=== PATIENT | female | born 1995 | race Caucasian/White ===

== ENCOUNTER 2025-07-25 08:33 | Outpatient (REF) | payer OTHER, SELFPAY ==
[2025-07-25 13:22] LABS: MANUAL DIFF FLAG NO
[2025-07-25 13:26] LABS: Appearance Urine Clear; Glucose Urine UA Negative (Negative); PH 5.0 (5.0-9.0); Specific Gravity - Urine 1.025 (1.005-1.025)
[2025-07-25 13:40] LABS: Hematocrit 41.5 % (37.0-47.0); Hemoglobin 13.6 g/dl (12.0-16.0); Imm Gran Abs Auto 0.00 X10*3/uL (0.00-0.03); Imm Gran Pct Auto 0.0 % (0.0-0.4); Lymphocytes Absolute Auto 3.1 X10*3/uL (1.2-4.9); Mean Corpuscular HGB Conc 32.8 g/dl (31.0-35.0); Mean Corpuscular Hemoglobin 32.4 pg (27.0-33.0); Mean Corpuscular Volume 98.8 fL (80.0-98.0); NRBC Abs Auto 0.000 X10*3/uL (0.0-0.012); NRBC Pct Auto 0.0 /100WBC (0.0-0.2); Platelet Count 332 X10*3/uL (160-400); Red Blood Count 4.20 X10*6/uL (4.20-5.50); White Blood Count 7.7 X10*3/uL (4.8-10.8)
[2025-07-25 14:31] LABS: Alanine Aminotransferase 21 U/L (0-31); Albumin Level 5.1 g/dL (3.5-5.0); Alkaline Phosphatase 74 U/L (39-117); Anion Gap 14 (12-20); Aspartate Amino Transferase 31 U/L (5-31); Blood Urea Nitrogen 18 mg/dL (9-16); Calcium 9.8 mg/dL (8.4-10.2); Carbon Dioxide 26 mmol/L (22-29); Chloride 105 mmol/L (96-108); Cholesterol 200 mg/dL (<200); Estimated Glomerular Filt Rate > 60; HDL Cholesterol 74 mg/dL (>40); Magnesium 2.1 mg/dL (1.6-2.6); Potassium 4.5 mmol/L (3.3-5.1); Sodium 140 mmol/L (135-145); Total Protein 7.7 g/dL (6.5-8.0); Triglycerides 105 mg/dL (<150)
[2025-07-25 14:56] LABS: Folate 10.2 ng/mL (> or = 4.0); Vitamin B12 396 pg/mL (200-900)
[2025-07-25 15:29] LABS: Free T4 (Free Thyroxine) 0.64 ng/dL (0.71-1.85)
[2025-07-25 15:34] LABS: CT PCR Urine NOT DETECTED (Not Detect.); NG PCR Urine NOT DETECTED (Not Detect.)
[2025-07-26 05:02] LABS: HBS Num1 0.25 mIU/mL (0-7.99); HBsAGNum1 0.39 S/CO (0.00-0.99); HIV Num 1 0.06 S/CO (0.00-0.99); Hepatitis B Surface Antigen Negative (Negative); ~HepC Num1 0.14 S/CO (0.00-0.79); ~Hepatitis B Surface Antibody NONREACTIVE (Nonreactive); ~Hepatitis C Antibody Nonreactive (Nonreactive)
[2025-07-26 05:58] LABS: Syphilis Screen Nonreactive (Nonreactive)
[2025-07-29 17:58] LABS: VITAMIN D (1,25 OH) D3 40 pg/mL; Vit D (1,25-Dihydroxy) Total 40 pg/mL (18-72); Vitamin D (1,25 OH) D2 <8 pg/mL
== END 2025-07-25 08:34 | disposition home or self-care (01) ==
LOC: HO.HKASLDS 08:33
PROVIDERS: PCP Student in an Organized Health Care Education/Training Program; Visit Provider Student in an Organized Health Care Education/Training Program
DX: Z76.89 Persons encountering health services in other specified circumstances (principal); F41.9 Anxiety disorder, unspecified; F43.10 Post-traumatic stress disorder, unspecified; J30.2 Other seasonal allergic rhinitis; M62.89 Other specified disorders of muscle; F10.91 Alcohol use, unspecified, in remission; N81.89 Other female genital prolapse; R15.9 Full incontinence of feces; Z13.31 Encounter for screening for depression; Z13.39 Encounter for screening examination for other mental health and behavioral disorders; Z13.9 Encounter for screening, unspecified
CPT/HCPCS: 80053; 80061; 81003; 82607; 82652; 82746; 83036; 83735; 84425; 84439; 84443; 85025; 86706; 86780; 86803; 87340; 87389; 87491; 87591; 96127; 99202

== ENCOUNTER 2025-07-25 08:33 | Outpatient (AMB) | payer OTHER, SELFPAY ==
--- OUTSIDE RECORDS SUMMARY | 2024-07-25 03:45 | XMS_ITS ---
Author Organization [facility] Billing Info Address [address] [place] [address] Care Team Providers Care Carpet Cleaner Name Role Phone ELIJAH JEROME Unavailable [phone] [place] Unavailable Unavailable Allergies No Known Allergies REASON FOR VISIT HX of Mild Polyhydramnios, Echogenic Bowel, Elevated BP at 15 weeks, Growth US/BPP, MFM visit Medications Medication SIG (Take, Route, Frequency, Duration) Notes Start Date End Date Status Magnesium Active Doxylamine-Pyridoxine 10-10 MG as directed Orally take daily q.h.s. may increase to b.i.d. if tolerate to the sleepiness side effects for 30 days 02/06/2024 Active Melatonin 3 MG 1 tablet at bedtime as needed Orally Once a day 30mg Active DHA 200 MG 1 capsule with a sandra l Orally Once a day for 30 days 01/18/2024 Active Liver Beef Liver Active Ferrous Sulfate Acti ve Social History Tobacco Use: Social History Observation Description Date Details (start date - stop date) Former Smoker NA - NA Tobacco Status: Question Answer Notes Patient is a former smoker Problems Problem Type SNOMED Code ICD Code Onset Dates Problem Status W/U Status Risk Notes Problem [id number] History of polyhydramnios (Z87.59) Active confirmed Vital Signs Height 66 in 07/25/2024 Weight 200.4 lbs 07/25/2024 BMI 32.34 kg/m2 07/25/2024 Blood pressure systolic 124 mm Hg 07/25/20 24 Blood pressure diastolic 76 mm Hg 024 Heart Rate 85 /min 07/25/2024 Oximetry 98 07/25/2024 Encounters Encounter Location Date Provider Diagnosis [id number] [facility] [address] [place] [address] 07/25/2024 ELIJAH JEROME Echogenic bowel of f etus on ultrasound O28.3 ; Elevated BP without diagnosis of hypertension R03.0 ; History of polyhydramnios Z87.59 and 32 weeks gestation of Z3A.32 Assessments Encounter Date Diagnosis (ICD Code) Assessment Notes Treatment Notes Treatment Clinical Notes Section Notes 07/25/2024 Echogenic bowel of fetus on ultrasound (ICD-10 - O28.3) 07/25/2024 Elevated BP without diagnosis of hypertension (ICD-10 - R03.0) 07/25/2024 History of polyhydramnios (ICD-10 - Z87.59) 07/25/2024 32 weeks gestation of (ICD-10 - Z3A.32) Weeks 32 to 34 of Your : Care Instructions material was published 07/25/2024 Other Please see Viewpoint [facility] documentation under eCW patient documents for further details regarding todays visit. Plan Of Treatment Treatment Notes Assessment Notes 32 weeks gestation of Weeks 32 to 34 of Your : Care Instructions material was published Next Appt Details Follow Up: Please see follow up recommendations in [facility] Viewpoint note., Reason: Progress Notes * Yanelis VERADOB: 7 (29 yo F)Acc No.[id number]:07/25/2024 PROGRESS NOTE Patient: Yanelis GERMAN External Provider: Jose JEROME DO :1995 A ge:29 Y S ex:Female Date:07/25/2024 C #:[id number] Address:[address] [place], [place] Subjective: * Chief Complaints: * H X of Mild Polyhydramnios, Echogenic Bowel, Elevated BP at 15 weeksGrowth US/BPPMFM visit * HPI: D epression Screening: PHQ-2 (2015 Edition) L ittle interest or pleasure in doing things??Not at all F eeling down, depressed, or hopeless? N ot at all T otal Score 0 F irst Point of Contact Screening: Do any of the following apply to you? N ew rash or open sores N o F ever and/or chills in the past 7 days N o C ough N o M uscle or body aches (other than from an injury) N o S ore throat N o I n the past 3 weeks, have you or a close contact traveled outside the [place] and you are now ill? N o O FFICE USE (If universal masking is not in place, provide patients age 2 years and older with a facemask to wear over their mouth and nose while in the practice.): P atient answered no to all questions OR only answered yes to question 1 N o further action needed 1 09/25/2023 * Medical History: * Importer Exporter History: L ast pap d ate 0 10/17/2023 wnl B irth control n one. S exually active c urrently sexually active. H istory of STDs C hlamydia. L ast menstrual period d ate 0 09/22/2023 M enarche a ge 1 2 P eriods e very 21-25 days for 3-5 days duration of bleeding with pain before and during menses.. * OB History: P ast Pregnancies T otal Preg. 2, Full Term 0, Premature 0, AB. Induced 0, AB. Spontaneous 1, Ectopics 0, Multiple Births 0, Living 0. T otal pregnancies 1 . P regnancy # 1: 2 014, Miscarriage, [place]. P regnancy # 2: C urrent. * Surgical History: t onsillectomy 2004 * Hospitalization/Major Diagno stic Procedure: D enies Past Hospitalization * Family History: F ather: stroke (CVA). G randmother: Cardiovascular Disease, Bleeding Disorder, blood clot. G randfather: Cardiovascular Disease. * Social History: A lcohol Use Patient u ses alcohol once per week outside of T obacco Status Patient is a former smoker Quit in: 018 I llicit Drug Use Patient/Family reports: P rior illicit drug use Marijuana, Aleja, Acid, Cocaine, Mushroom - 3 years Do you use marijuana? N o Do you use prescription drugs that are not prescribed for you??No * Medications: T akingDoxylamine-Pyridoxine 10-10 MG Tablet Delayed Release as directed Orally take daily q.h.s. may increase to b.i.d. if tolerate to the sleepiness side effects Ferrous Sulfate Liver , Notes to Pharmacist: Beef LiverMagnesium Melatonin 3 MG Tablet 1 tablet at bedtime as needed Orally Once a day , Notes to Pharmacist: 30mgPreNatal DHA 200 MG Capsule 1 capsule with a meal Orally Once a day Medication List reviewed and reconciled with the patientTaking Doxylamine-Pyridoxine 10-10 MG Tablet Delayed Release as directed Orally take daily q.h.s. may increase to b.i.d. if tolerate to the sleepiness side effects Taking Ferrous Sulfate Taking Liver , Notes to Pharmacist: Beef LiverTaking Magnesium Taking Melatonin 3 MG Tablet 1 tablet at bedtime as needed Orally Once a day , Notes to Pharmacist: 30mgTaking DHA 200 MG Capsule 1 capsule with a meal Orally Once a day Medication List reviewed and reconciled with the patient * Allergies: N .K.A.no[Allergies Verified] Objective: * Vitals: H t: 66 in, Ht-cm: 167.64 cm, Wt: 200.4 lbs, Wt-k.9 kg, BMI:32.34, Weight Change: 3.4 lbs, Body Surface Area: 2.06, BP:124/76, HR:85, Oxygen sat %:98, Pain scale: 0. Assessment: * Assessment: 1. E chogenic bowel of fetus on ultrasound - O28.3 (Primary) 2 . E levated BP without diagnosis of hypertension - R03.0 3 . H istory of polyhydramnios - Z87.59 4 . 3 2 weeks gestation of - Z3A.32 Plan: * Treatment: 2. O thers Clinical Notes: Please see Viewpoint [facility] documentation under eCW patient documents for further details regarding todays visit. * Procedure Codes: 7 6816 [id number] * Preventive Medicine: [place] PAF (Patient Assessment Form): F all Risk Assessment Date Screening Completed: 08/23/2022 Increased Fall Risk factors: N o fall risk factors History Falls in Past Year: N o falls in the past year * Follow Up: Noemí mitchell see follow up recommendations in [facility] Viewpoint note. * Care Plan Details* * Sign off status: Completed true * Provider: Jose JEROME DO Date: 09/25/2023 Generated for Meir Jenkins/Savage on: 09/25/2024 09:20 AM EST History and Physical Notes * HPI (History of Present Illness) Category Sub-Category Detail Notes Category Not es Depression Screening PHQ-2 (2015 Edition) Little interest or pleasure in doing things?: Not at all Feeling down, depressed, or hopeless?: N ot at all Total Score: 0 First Point of Contact Screening Do any of the following apply to you? New rash or open sores: No Fever and/or chills in the past 7 days: No Cough: No Muscle or body aches (other than from an injury): No Sore throat: No In the past 3 weeks, have yo u or a close contact traveled outside the [place] and you are now ill? : No OFFICE USE (If [email or web address] is not in place, provide patients age 2 years and older with a facemask to wear over their mouth and nose while in the practice.):: Patient answered no to all questions OR only answered yes to question 1 No further action needed : 07/25/2024
--- OUTSIDE RECORDS SUMMARY | 2024-08-01 02:30 | XMS_ITS ---
Author Organization [facility] Billing Info Address [address] [facility] [place] [address] Care Team Providers Care Industrial Court Magistrate Name Role Phone ELIJAH JEROME Unavailable [phone] [place], [facility]if[facility] Unavailable Unavailable Allergies No Known Allergies REASON FOR VISIT BP check, BPP Medications Medication SIG (Take, Route, Frequency, Duration) Notes Start Date End Date Status Magnesium Active Aspirin Adult Low Dose 81 MG 1 tablet Orally Once a day Active Liver Beef Liver Active DHA 200 MG 1 capsule with a sandra l Orally Once a day for 30 days 01/18/2024 Active Melatonin 3 MG 1 tablet at bedtime as needed Orally Once a day 30mg Active Ferrous Sulfate Acti ve Doxylamine-Pyridoxine 10-10 MG as directed Orally take daily q.h.s. may increase to b.i.d. if tolerate to the sleepiness side effects for 30 days 02/06/2024 Active Social History Tobacco Use: Social History Observation Description Date Details (start date - stop date) Former Smoker NA - NA Tobacco Status: Question Answer Notes Patient is a former smoker Vital Signs Height 66 in 08/01/2024 Weight 201 lbs 08/01/2024 BMI 32.44 kg/m2 08/01/2024 Blood pressure systolic 132 mm Hg 08/01/20 24 Blood pressure diastolic 66 mm Hg 024 Heart Rate 88 /min 08/01/2024 Oximetry 98 08/01/2024 Encounters Encounter Location Date Provider Diagnosis [id number] [facility] [address] [place] [address] 08/01/2024 ELIJAH JEROME Echogenic bowel of f etus on ultrasound O28.3 ; Elevated BP without diagnosis of hypertension R03.0 ; History of polyhydramnios Z87.59 and 33 weeks gestation of Z3A.33 Assessments Encounter Date Diagnosis (ICD Code) Assessment Notes Treatment Notes Treatment Clinical Notes Section Notes 08/01/2024 Echogenic bowel of fetus on ultrasound (ICD-10 - O28.3) 08/01/2024 Elevated BP without diagnosis of hypertension (ICD-10 - R03.0) 08/01/2024 History of polyhydramnios (ICD-10 - Z87.59) 08/01/2024 33 weeks gestation of (ICD-10 - Z3A.33) Weeks 32 to 34 of Your : Care Instructions material was published 08/01/2024 Other Please see Viewpoint [facility] documentation under eCW patient documents for further details regarding todays visit. Plan Of Treatment Treatment Notes Assessment Notes 33 weeks gestation of Weeks 32 to 34 of Your : Care Instructions material was published Next Appt Details Follow Up: Please see follow up recommendations in M Viewpoint note., Reason: Progress Notes * Yanelis VERADOB: 7 (29 yo F)Acc No.[id number]:08/01/2024 PROGRESS NOTE Patient: Yanelis GERMAN External Provider: Jose JEROME DO :1995 A ge:29 Y S ex:Female Date:08/01/2024 C #:[id number] Address:[address] [place] [address] [place] Subjective: * Chief Complaints: * B P checkBPP * HPI: D epression Screening: PHQ-2 (2015 [...] 1 N o further action needed 1 10/02/2023 * Medical History: * Surgical History: t onsillectomy 2004 * Hospitalization/Major Diagno stic Procedure: D enies Past Hospitalization * Family History: F ather: stroke (CVA). G randmother: Cardiovascular Disease, Bleeding Disorder, blood clot. G randfather: Cardiovascular Disease. * Social History: A lcohol Use Patient u ses alcohol once per week outside of T obacco Status Patient is a former smoker Quit in: I llicit Drug Use Patient/Family reports: P rior illicit drug use Marijuana, Aleja, Acid, Cocaine, Mushroom - 3 years Do you use marijuana? N o Do you use prescription drugs that are not prescribed for you??No * Medications: T akingAspirin Adult Low Dose 81 MG Tablet Delayed Release 1 tablet Orally Once a day Doxylamine-Pyridoxine 10-10 MG Tablet Delayed Release as [...] List reviewed and reconciled with the patientTaking Aspirin Adult Low Dose 81 MG Tablet Delayed Release 1 tablet Orally Once a day Taking Doxylamine-Pyridoxine 10-10 MG Tablet Delayed Release as [...] t: 66 in, Ht-cm: 167.64 cm, Wt: 201 lbs, Wt-k.17 kg, BMI:32.44, Weight Change: 0.6 lbs, Body Surface Area: 2.06, BP:132/66, HR:88, Oxygen sat %:98, Pain scale: 0. Assessment: * Assessment: 1. E chogenic bowel of fetus on ultrasound - O28.3 (Primary) 2 . E levated BP without diagnosis of hypertension - R03.0 3 . H istory of polyhydramnios - Z87.59 4 . 3 3 weeks gestation of - Z3A.33 Plan: * Treatment: 2. O thers Clinical Notes: Please see Viewpoint [facility] documentation under eCW patient documents for further details regarding todays visit. * Procedure Codes: 7 6819 [id number] * Preventive Medicine: [place] PAF (Patient Assessment Form): F all Risk Assessment Date Screening Completed: 10/02/2023 Increased Fall Risk factors: N o fall risk factors History Falls in Past Year: N o falls in the past year * Follow Up: Noemí mitchell see follow up recommendations in M Viewpoint note. * Care Plan Details* * Sign off status: Completed true * Provider: Jose JEROME DO Date: 10/02/2023 Generated for Meir desouza/Khanh/Savage on: 09/25/2024 09:16 AM EST History and Physical Notes * [...] now ill? : No OFFICE USE (If universal mas irish is not in place, provide patients age 2 years and older with a facemask to wear over their mouth and nose while in the practice.):: Patient answered no to all questions OR only answered yes to question 1 No further action needed : 08/01/2024
--- OUTSIDE RECORDS SUMMARY | 2024-08-01 02:30 | XMS_ITS ---
Author Organization [facility] Billing Info Address [address] [place] [address] Care Team Providers Care Supervisor Drying And Softening Name Role Phone JUSTUS ELIJAH Unavailable [phone] [facility] Unavailable Unavailable REASON FOR VISIT BPP, nurse Encounters Encounter Location Date Provider Diagnosis [id number] [facility] [address] [place] [address] 08/01/2024 ELIJAH JEROME Echogenic bowel of f etus on ultrasound O28.3 ; Elevated BP without diagnosis of hypertension R03.0 and History of polyhydramnios Z87.59 Assessments Encounter Date Diagnosis (ICD Code) Assessment Notes Treatment Notes Treatment Clinical Notes Section Notes 08/01/2024 Echogenic bowel of fetus on ultrasound (ICD-10 - O28.3) 08/01/2024 Elevated BP without diagnosis of hypertension (ICD-10 - R03.0) 08/01/2024 History of polyhydramnios (ICD-10 - Z87.59) Plan Of Treatment No Information Progress Notes * Yanelis VERADOB: 7 (29 yo F)Acc No.[id number]:08/01/2024 PROGRESS NOTE Patient: Yanelis GERMAN External Provider: Jose JEROME DO :1995 A ge:29 Y S ex:Female Date:08/01/2024 Donna ACHARYA#:[id number] [facility] [address] [facility] Subjective: * Chief Complaints: * B PP, nurse * Medical History: * Surgical History: * Hospitalization/Major Diagno stic Procedure: * Medications: Objective: * Vitals: Assessment: * Assessment: 1. E chogenic bowel of fetus on ultrasound - O28.3 (Primary) 2 . E levated BP without diagnosis of hypertension - R03.0 3 . H istory of polyhydramnios - Z87.59 Plan: * Treatment: 2. E levated BP without diagnosis of hypertension I maging: US- BIOPHYSICAL PROFILE, W/O NON-STRESS(ScImage-PREFBO) (58652) IH 3. H istory of polyhydramnios I maging: US- BIOPHYSICAL PROFILE, W/O NON-STRESS(ScImage-PREFBO) (56061) IH * Procedure Codes: * * Sign off status: Completed true * Provider: Jose JEROME DO Date: 10/02/2023 Generated for Meir desouza/Khanh/Savage on: 09/25/2024 09:20 AM EST
--- OUTSIDE RECORDS SUMMARY | 2024-08-08 03:00 | XMS_ITS ---
Author Organization [facility] Billing Info Address [address] [place] [address] Care Team Providers Care Wind Plant Manager Name Role Phone JUSTUS ELIJAH Unavailable [phone] [facility] Unavailable Unavailable REASON FOR VISIT BPP, nurse Encounters Encounter Location Date Provider Diagnosis [id number] [facility] [address] [place] [address] 08/08/2024 ELIJAH JEROME Echogenic bowel of f etus on ultrasound O28.3 ; Elevated BP without diagnosis of hypertension R03.0 and History of polyhydramnios Z87.59 Assessments Encounter Date Diagnosis (ICD Code) Assessment Notes Treatment Notes Treatment Clinical Notes Section Notes 08/08/2024 Echogenic bowel of fetus on ultrasound (ICD-10 - O28.3) 08/08/2024 Elevated BP without diagnosis of hypertension (ICD-10 - R03.0) 08/08/2024 History of polyhydramnios (ICD-10 - Z87.59) Plan Of Treatment No Information Progress Notes * Yanelis VERADOB: 7 (29 yo F)Acc No.[id number]:08/08/2024 PROGRESS NOTE Patient: Yanelis GERMAN External Provider: Jose JEROME DO :1995 A ge:29 Y S ex:Female Date:08/08/2024 Donna ACHARYA#:[id number] Address[facility] Subjective: * Chief Complaints: * B PP, [...] I maging: US- BIOPHYSICAL PROFILE, W/O NON-STRESS(ScImage-PREFBO) (71282) IH 3. H istory of polyhydramnios I maging: US- BIOPHYSICAL PROFILE, W/O NON-STRESS(ScImage-PREFBO) (35993) IH * Procedure Codes: * * Sign off status: Completed true * Provider: Jose JEROME DO Date: 10/09/2023 Generated for Meir desouza/Khanh/Savage on: 09/25/2024 09:20 AM EST
--- OUTSIDE RECORDS SUMMARY | 2024-08-08 03:00 | XMS_ITS ---
Author Organization [facility] Billing Info Address [address] [facility] [place] [address] Care Team Providers Care Heel Pricker Name Role Phone ELIJAH JEROME Unavailable [phone] [place] Unavailable Unavailable Allergies No Known Allergies REASON FOR VISIT BP check, BPP Medications Medication SIG (Take, Route, Frequency, Duration) Notes Start Date End Date Status Liver Beef Liver Active Doxylamine-Pyridoxine 10-10 MG as directed Orally take daily q.h.s. may increase to b.i.d. if tolerate to the sleepiness side effects for 30 days 02/06/2024 Active Ferrous Sulfate Acti ve Magnesium Active Melatonin 3 MG 1 tablet at bedtime as needed Orally Once a day 30mg Active DHA 200 MG 1 capsule with a sandra l Orally Once a day for 30 days 01/18/2024 Active Aspirin Adult Low Dose 81 MG 1 tablet Orally Once a day Active Social History Tobacco Use: Social History Observation Description Date Details (start date - stop date) Former Smoker NA - NA Tobacco Status: Question Answer Notes Patient is a former smoker Vital Signs Height 66 in 08/08/2024 Weight 204 lbs 08/08/2024 BMI 32.92 kg/m2 08/08/2024 Blood pressure systolic 118 mm Hg 08/08/20 24 Blood pressure diastolic 74 mm Hg 024 Heart Rate 94 /min 08/08/2024 Oximetry 98 08/08/2024 Encounters Encounter Location Date Provider Diagnosis [id number] [facility] [address] [place] [address] 08/08/2024 ELIJAH JEROME Echogenic bowel of f etus on ultrasound O28.3 ; Elevated BP without diagnosis of hypertension R03.0 ; History of polyhydramnios Z87.59 and 34 weeks gestation of Z3A.34 Assessments Encounter Date Diagnosis (ICD Code) Assessment Notes Treatment Notes Treatment Clinical Notes Section Notes 08/08/2024 Echogenic bowel of fetus on ultrasound (ICD-10 - O28.3) 08/08/2024 Elevated BP without diagnosis of hypertension (ICD-10 - R03.0) 08/08/2024 History of polyhydramnios (ICD-10 - Z87.59) 08/08/2024 34 weeks gestation of (ICD-10 - Z3A.34) Weeks 34 to 36 of Your : Care Instructions material was published 08/08/2024 Other Please see Viewpoint [facility] documentation under eCW patient documents for further details regarding todays visit. Plan Of Treatment Treatment Notes Assessment Notes 34 weeks gestation of Weeks 34 to 36 of Your : Care Instructions material was published Next Appt Details Follow Up: Please see follow up recommendations in M Viewpoint note., Reason: Progress Notes * Yanelis VERADOB: 7 (29 yo F)Acc No.[id number]:08/08/2024 PROGRESS NOTE Patient: Yanelis GERMAN External Provider: Jose JEROME DO :1995 A ge:29 Y S ex:Female Date:08/08/2024 C #:[id number] Address:[address] [place] [address] [place], [place] Subjective: * Chief Complaints: * B [...] 1 N o further action needed 1 10/09/2023 * Medical History: * Surgical History: t [...] t: 66 in, Ht-cm: 167.64 cm, Wt: 204 lbs, Wt-k.53 kg, BMI:32.92, Weight Change: 3 lbs, Body Surface Area: 2.07, BP:118/74, HR:94, Oxygen sat %:98, Pain scale: 0. Assessment: * Assessment: 1. E chogenic bowel of fetus on ultrasound - O28.3 (Primary) 2 . E levated BP without diagnosis of hypertension - R03.0 3 . H istory of polyhydramnios - Z87.59 4 . 3 4 weeks gestation of - Z3A.34 Plan: * Treatment: 2. O thers Clinical Notes: Please see Viewpoint [facility] documentation under eCW patient documents for further details regarding todays visit. * Procedure Codes: 7 6819 74098 * Preventive Medicine: [place] PAF (Patient Assessment Form): F all Risk Assessment Date Screening Completed: 08/23/2022 Increased Fall Risk factors: N o fall risk factors History Falls in Past Year: N o falls in the past year * Follow Up: P paula see follow up recommendations in [facility] Viewpoint note. * Care Plan Details* * Sign off status: Completed true * Provider: Jose JEROME DO Date: 10/09/2023 Generated for Meir desouza/Khanh/Savage on: 09/25/2024 09:20 AM EST History and [...] or a close contact traveled outside the [place] and you are now ill? : No OFFICE USE (If universal mas irish is not in place, provide patients age 2 years and older with a facemask to wear over their mouth and nose while in the practice.):: Patient answered no to all questions OR only answered yes to question 1 No further action needed : 08/08/2024
--- OUTSIDE RECORDS SUMMARY | 2024-08-14 03:30 | XMS_ITS ---
Author Organization [facility] Billing Info Address [address] [facility] [place] [address] Care Team Providers Care Community Educator Name Role Phone ELIJAH JEROME Unavailable [phone] [facility] Unavailable Unavailable Allergies No Known Allergies REASON FOR VISIT BP check, BPP Medications Medication SIG (Take, Route, Frequency, Duration) Notes Start Date End Date Status Magnesium Active Liver Beef Liver Active DHA 200 [...] side effects for 30 days 02/06/2024 Active Aspirin Adult Low Dose 81 MG 1 tablet Orally Once a day Active Social History Tobacco Use: Social History Observation Description Date Details (start date - stop date) Former Smoker NA - NA Tobacco Status: Question Answer Notes Patient is a former smoker Vital Signs Height 66 in 08/14/2024 Weight 205 lbs 08/14/2024 BMI 33.08 kg/m2 08/14/2024 Blood pressure systolic 108 mm Hg 08/14/20 24 Blood pressure diastolic 66 mm Hg 024 Heart Rate 88 /min 08/14/2024 Oximetry 99 08/14/2024 Encounters Encounter Location Date Provider Diagnosis [id number] [facility]ERNAL [facility] [address] [place] [address] 08/14/2024 ELIJAH JEROME Echogenic bowel of f etus on ultrasound O28.3 ; Elevated BP without diagnosis of hypertension R03.0 ; History of polyhydramnios Z87.59 and 34 weeks gestation of Z3A.34 Assessments Encounter Date Diagnosis (ICD Code) Assessment Notes Treatment Notes Treatment Clinical Notes Section Notes 08/14/2024 Echogenic bowel of fetus on ultrasound (ICD-10 - O28.3) 08/14/2024 Elevated BP without diagnosis of hypertension (ICD-10 - R03.0) 08/14/2024 History of polyhydramnios (ICD-10 - Z87.59) 08/14/2024 34 weeks gestation of (ICD-10 - Z3A.34) Weeks 34 to 36 of Your : Care Instructions material was published 08/14/2024 Other Please see Viewpoint [facility] documentation under eCW patient documents for further details regarding todays visit. Plan Of Treatment Treatment Notes Assessment Notes 34 weeks gestation of Weeks 34 to 36 of Your : Care Instructions material was published Next Appt Details Follow Up: Please see follow up recommendations in M Viewpoint note., Reason: Progress Notes * Yanelis VERADOB: 7 (29 yo F)Acc No.[id number]:08/14/2024 PROGRESS NOTE Patient: Yanelis GERMAN External Provider: Jose JEROME DO :1995 A ge:29 Y S ex:Female Date:08/14/2024 C #:[id number] Address:[address] [place] [address] [id number] Subjective: * Chief Complaints: * B [...] 1 N o further action needed 1 10/15/2023 * Medical History: * Surgical History: t [...] t: 66 in, Ht-cm: 167.64 cm, Wt: 205 lbs, Wt-k.99 kg, BMI:33.08, Weight Change: 1 lbs, Body Surface Area: 2.08, BP:108/66, HR:88, Oxygen sat %:99, Pain scale: 0. Assessment: * Assessment: 1. E chogenic bowel of fetus on ultrasound - O28.3 (Primary) 2 . E levated BP without diagnosis of hypertension - R03.0 3 . H istory of polyhydramnios - Z87.59 4 . 3 4 weeks gestation of - Z3A.34 Plan: * Treatment: 2. O thers Clinical Notes: Please see Viewpoint [facility] documentation under eCW patient documents for further details regarding todays visit. * Procedure Codes: 7 6819 63056 * Preventive Medicine: [place] [facility] (Patient Assessment Form): F all Risk Assessment Date Screening Completed: 10/15/2023 Increased Fall Risk factors: N o fall risk factors History Falls in Past Year: N o falls in the past year * Follow Up: P paula see follow up recommendations in [facility] Viewpoint note. * Care Plan Details* * Sign off status: Completed true * Provider: Jose JEROME DO Date: 10/15/2023 Generated for Meir desouza/Khanh/Savage on: 09/25/2024 09:20 [...] or a close contact traveled outside the [place] and you are now ill? : No OFFICE USE (If universal mas ir[facility] is not in place, provide patients age 2 years and older with a facemask to wear over their mouth and nose while in the practice.):: Patient answered no to all questions OR only answered yes to question 1 No further action needed : 08/14/2024
--- OUTSIDE RECORDS SUMMARY | 2024-08-14 03:30 | XMS_ITS ---
Author Organization [facility] Billing Info Address [address] [place] [address] Care Team Providers Care Core Placer Name Role Phone JUSTUS ELIJAH Unavailable [phone] [facility] Unavailable Unavailable REASON FOR VISIT BPP, nurse Encounters Encounter Location Date Provider Diagnosis [id number] [facility]ERNAL [facility] [address] [place] [address] 08/14/2024 ELIJAH JEROME Echogenic bowel of f [...] 08/14/2024 History of polyhydramnios (ICD-10 - Z87.59) Plan Of Treatment No Information Progress Notes * Yanelis VERADOB: 7 (29 yo F)Acc No.[id number]:08/14/2024 PROGRESS NOTE Patient: Yanelis GERMAN External Provider: Jose JEROME DO :1995 A ge:29 Y S ex:Female Date:08/14/2024 Donna ACHARYA#:[id number] [facility] Subjective: * Chief Complaints: * B PP, [...] I maging: US- BIOPHYSICAL PROFILE, W/O NON-STRESS(ScImage-PREFBO) (42177) IH 3. H istory of polyhydramnios I maging: US- BIOPHYSICAL PROFILE, W/O NON-STRESS(ScImage-PREFBO) (61211) IH * Procedure Codes: * * Sign off status: Completed true * Provider: Jose JEROME DO Date: 10/15/2023 Generated for Meir desouza/Khanh/Savage on: 09/25/2024 09:16 AM EST
--- OUTSIDE RECORDS SUMMARY | 2024-08-28 04:52 | XMS_ITS ---
Author Organization [facility] Billing Info Address [address] [place] [address] Care Team Providers Care Pump Servicer Name Role Phone ELIJAH JEROME Unavailable [phone] [facility] Unavailable Unavailable REASON FOR VISIT Cancel appts Encounters Encounter Location Date Provider Diagnosis [id number] [facility]STATE COORDINATOR [address] [facility] [address] [place], [place] [id number] 08/28/2024 ELIJAH JEROME Plan Of Treatment No Information Progress Notes * Yanelis VERADOB: 7 (29 yo F)Acc No.[id number]:08/28/2024 Patient: Yanelis GERMAN :1995 A ge:29 Y S ex:Female Address:[facility] [place] [address] * true * Date: Generated for Jareki ng/Fajaneg/eTransmitting on: 1 09/25/2024 09:16 AM EST
--- OUTSIDE RECORDS SUMMARY | 2024-08-29 07:00 | XMS_ITS ---
Author Organization [facility] Billing Info Address [address] [place] [address] Care Team Providers Care Lens Silverer Name Role Phone ELIJAH JEROME Unavailable [phone] [facility] Unavailable Unavailable REASON FOR VISIT [facility] follow up Encounters Encounter Location Date Provider Diagnosis [id number] MATERNAL MED [address] [place] [address] 08/29/2024 ELIJAH JEROME Echogenic bowel of f etus on ultrasound O28.3 ; Elevated BP without diagnosis of hypertension R03.0 ; History of polyhydramnios Z87.59 and 37 weeks gestation of Z3A.37 Assessments Encounter Date Diagnosis (ICD Code) Assessment Notes Treatment Notes Treatment Clinical Notes Section Notes 08/29/2024 Echogenic bowel of fetus on ultrasound (ICD-10 - O28.3) 08/29/2024 Elevated BP without diagnosis of hypertension (ICD-10 - R03.0) 08/29/2024 History of polyhydramnios (ICD-10 - Z87.59) 08/29/2024 37 weeks gestation of (ICD-10 - Z3A.37) Plan Of Treatment No Information Progress Notes * Yanelis VERADOB: 7 (30 yo F)Acc No.[id number]:08/29/2024 PROGRESS NOTE Patient: Yanelis GERMAN External Provider: Jose JEROME DO :1995 A ge:29 Y S ex:Female Date:08/29/2024 Donna ACHARYA#:[id number] Address:[place], [place] Subjective: * Chief Complaints: * 1 . [facility] follow up. * Medical History: * Priest History: L ast pap d ate 0 [...] P regnancy # 1: 2 014, Miscarriage, [place]. P regnancy # 2: C urrent. Objective: * Vitals: Assessment: * Assessment: 1. E chogenic bowel of fetus on ultrasound - O28.3 (Primary) 2 . E levated BP without diagnosis of hypertension - R03.0 3 . H istory of polyhydramnios - Z87.59 4 . 3 7 weeks gestation of - Z3A.37 Plan: * Treatment: * Procedure Codes: 7 6819 59086, 44879 79240 * Care Plan Details* * This progress note has not b een verified nor is it considered complete until locked and signed by the provider. Sign off status: Pending * Provider: Jose JEROME DO Date: 0 08/29/2024 Generated for Meir desouza/Khanh/Saigeitting on: 09/25/2024 09:20 AM EST
--- OUTSIDE RECORDS SUMMARY | 2025-06-26 09:33 | XMS_ITS | Encounter Summary ---
Author Organization [facility] Address [address] [place] [address] Phone Care Team Providers Care Refrigerator Room Clerk Name Role Phone Allie Porter MD Primary Care Provid er Encounter Details Date Type Department Care Team (Late st Contact Info) Description 06/26/2025 9:33 AM EST Hospital Encounter [facility] [address] [place] [address] Haley Dyer CNP [address] [place] [address] [email or web address] Social History Tobacco Use Types Packs/Day Years [...] clinician's provided indication for this examination in [facility]: Pain; Noted subpatellar swelling, pain?restarted running COMPARISON: None FINDINGS: Right Knee: No fracture. Normal alignment. Normal joint spaces. Trace effusion. Procedure Note Rasheed Metzger MD, MPH - 06/26/2025 XR KNEE 4 OR MORE VIEWS (RIGHT) Referring clinician's provided indication for this examination in [facility]:Pain; Noted subpatellar swelling, pain?restarted running COMPARISON: None FINDINGS: Right Knee: No fracture. Normal alignment. Normal joint spaces. Traceeffusion. IMPRESSION: No fracture or dislocation. Trace effusion. Haley Dyer REELER OPERATOR IMG XR LOWER EXTREMITY Nirali l Result documented in this encounter Visit Diagnoses Not on filedocumented in this encounter Care Teams Refrigerator Room Clerk Relationship Specialty Start Date End Date Allie Porter MD [address] [place] [address] PCP - General 06/26/25 documented as of this encounter Additional Source Comments The information contained in this document represents components of the legal health record. It is not the complete legal health record.[facility]
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
[2025-07-25 08:48] VITALS: BP 96/58; PULSE 81; RESP 18; TEMP 36.6; O2SAT 97; BMI 30.6
--- OUTSIDE RECORDS SUMMARY | 2025-07-25 09:19 | XMS_ITS | Clinical Summary ---
Author Organization [facility] Address [address] [place] [phone] Phone Care Team Providers Care Powerhouse Operator Name Role Phone Allie Porter MD Primary Care Provid er Allergies No known active allergies Medications folic acid (FOLVITE) 1 MG tablet Take 1 mg by mouth daily. Active therapeutic multivitamin tablet Take 1 tablet by mouth daily. Active Active Problems No known active problems Encounters Date Type Department Care Team Description 06/26/2025 9:33 AM EST Hospital Encounter [facility] [address] [place] [id number] Haley Deyr CNP 06/26/2025 9:10 AM EST Office Visit [facility] at [address] [address] Haley Dyer CNP Acute pain of right knee (Primary Dx); Knee strain, right, initial encounter from Last 3 Months Social History Tobacco Use Types Packs/Day Years [...] on file Sexual Orientation Not on file Last Filed Vital Signs Vital Sign Reading Time Taken Comments Blood Pressure 122/84 06/26/2025 9:16 AM EST Pulse 68 06/26/2025 9:16 AM EST Temperature 36.2 C (97.1 F) 06/26/2025 9:16 AM EST Respiratory Rate 17 06/26/2025 9:16 AM EST Oxygen Saturation 99% 06/26/2025 9:16 AM EST Inhaled Oxygen Concentration - - Weight - - Height - - Body Mass Index - - Plan of Treatment Health Maintenance Due Date Last Done Comments Adult Td,Tdap Booster 1997 DEPRESSION SCREENING 2009 SMOKING Hx and SMOKELESS TOB ACCO SCREENING 2010 HEPATITIS C SCREENING 2015 HIV ONE-TIME SCREENING (18-6 5 YEARS) 2015 PAP SMEAR 2018 INFLUENZA VACCINE (#1) 2025 COVID-19 VACCINE (2024-2 6 season) 2025 HEPATITIS A VACCINES Aged Out No long er eligible based on patient's age to complete this topic HIB VACCINES Aged Out No longer eligi ble based on patient's age to complete this topic MENINGOCOCCAL VACCINES (ACWY) Aged Out No longer eligible based on patient's age to complete this topic MENINGOCOCCAL VACCINES (B) Aged Out N o longer eligible based on patient's age to complete this topic PNEUMOCOCCAL VACCINES (0-49 years) Aged Out No longer eligible based on patient's age to complete this topic Medical Devices Not on file Procedures Procedure Name Priority Date/Time Associated Diagnosis Comments XR KNEE 4 OR MORE VIEWS (RIGHT) Urgent/patient waiting 06/26/2025 9:38 AM EST Acute pain of right knee from Last 3 Months Results * XR KNEE 4 OR MORE VIEWS (RIGHT) (06/26/2025 9:38 AM EST) Anatomical Region Laterality Modality Knee Right Computed Radiogr aphy 06/26/2025 9:45 AM EST Impressions 06/26/2025 9:45 AM EST No fracture or dislocation. Trace effusion. Narrative 06/26/2025 9:45 AM EST XR KNEE 4 OR MORE VIEWS (RIGHT) Referring clinician's provided indication for this examination in Epic: Pain; Noted subpatellar swelling, pain?restarted running COMPARISON: None FINDINGS: Right Knee: No fracture. Normal alignment. Normal joint spaces. Trace effusion. Procedure Note Rasheed Metzger MD, MPH - 06/26/2025 XR KNEE 4 OR MORE VIEWS (RIGHT) Referring clinician's provided indication for this examination in Epic:Pain; Noted subpatellar swelling, pain?restarted running COMPARISON: None FINDINGS: Right Knee: No fracture. Normal alignment. Normal joint spaces. Traceeffusion. IMPRESSION: No fracture or dislocation. Trace effusion. Haley Dyer AVIATION NEUROPSYCHOLOGIST IMG XR LOWER EXTREMITY Nirali l Result from Last 3 Months Insurance [facility] [facility] [employer] [facility] [employer] Care Teams Powerhouse Operator Relationship Specialty Start Date End Date Allie Porter MD [address] [place] [address] PCP - General 06/26/25 Additional Source Comments The information contained in this document represents components of the legal health record. It is not the complete legal health record.[facility]
--- OUTSIDE RECORDS SUMMARY | 2025-07-25 09:21 | XMS_ITS ---
Author Name Interface, T0Wpampyn lity Address [address] [place] [address] [facility] ecialistsHUMA Address [address] [place] [address] Allergies and Adverse Reactions Medication/Group Name Reaction Severity Date No known allergies Plan Date Type Value 10/19/2024 APPOINTMENT Annual Exam/Phys ical 30 10/12/2024 APPOINTMENT Lab 12/14/2023 APPOINTMENT Hosp/ER Follow U p 10/19/2023 APPOINTMENT Lab 10/17/2023 APPOINTMENT New Patient 30 10/17/2023 LAB_ORDER Iron, TIBC, Ferr itin panel 10/17/2023 LAB_ORDER Vitamin D 10/17/2023 LAB_ORDER Magnesium, mg/dL 10/17/2023 LAB_ORDER Basic Metabolic Panel 10/17/2023 LAB_ORDER TSH w/ reflex to free T4 10/17/2023 LAB_ORDER Lipid panel 10/17/2023 LAB_ORDER Vitamin B12 10/17/2023 LAB_ORDER Folate, serum 10/17/2023 LAB_ORDER Hepatic function panel 10/17/2023 LAB_ORDER CBC w/ auto diff 10/17/2023 LAB_ORDER Hgb A1c 10/12/2024 LAB_ORDER CMP 10/12/2024 LAB_ORDER Lipid panel 10/12/2024 LAB_ORDER Vitamin D 10/12/2024 LAB_ORDER TSH w/ reflex to free T4 10/12/2024 LAB_ORDER Hgb A1c 10/12/2024 LAB_ORDER CBC w/o diff Reason for Visit Annual Exam/Physical 30 Encounters Date Name 10/17/2023 Adult health examina tion (procedure) 10/17/2023 Allergic rhinitis (d isorder) 10/17/2023 Anxiety 10/17/2023 Cervical cancer scre ening done 10/17/2023 Insomnia 10/17/2023 Tinnitus (finding) 10/17/2023 Vitamin B12 deficien cy 10/17/2023 Vitamin D deficiency (disorder) Immunizations Date Name Route Dose Instructions Refusal Reason Stat us Flu vaccine - Adult Patient declined/rejected Not Administered Diagnostic Results Date Type Test Units Lower Limit Upper Limit Result Flag Comments Status Ordered By Specimen Source Lab Address 10/19 Poppy stero l mg/dL [address] FINAL [email or web address], [address] [place] [address] Seamus Juan MD 10/19 HDL poppy stero l mg/dL 80 [address]anca [address] FINAL [place] M[facility]quez [email or web address], [address] [place] [address] Seamus Juan MD 10/19 Trigl yceri papo mg/dL 226 High If a non-fasti ng specimen was collected , considerr epeat triglycer annie testing on a fasting specimeni f clinicall y indicated .Vinod et al. J. of Clin. Lipidol. 2015;9:12 9-169. FINAL [facility], [address] [place] [address] Seamus Juan MD 10/19 LDL poppy stero l, calcu lated mg/dL( calc) 70 Blanca l Reference range: <100Desir able range <100 mg/dL for primary preventio n;<70 mg/dL for patients with CHD or diabetic patientsw ith >or = 2 CHD risk factors.L DL-C is now calculate d using the Kilo-Lee pkinscalc ulation, which is a validated novel method providing better accuracy than the Friedewal d equation in theestima tion of LDL-C.Emerald vinson SS et al. PETE. 2013;310( 19): 5096-2581 (http://e ducation. MEDNAXag nostics.c om/faq/FA J336) FINAL [facility], [address] [place] [address] Seamus Juan MD 10/19 Poppy stero l/HDL ratio (calc) 2.2 Blanca l FINAL [place] [facility], [address] [place] [address] Seamus Juan MD 10/19 Non-H DL poppy stero l mg/dL( calc) 98 Blanca l For patients with diabetes plus 1 major ASCVD riskfacto r, treating to a non-HDL-C goal of <100 mg/dL(LDL -C of <70 mg/dL) is considere d a therapeut icoption. FINAL [place] M[facility], [address] [place] [address] Seamus Juan MD 10/19 Vitam in B12 panel Vitam in B12 pg/mL 200.0 1100.0 308 Blanca l Please Note: Although the reference range for vitaminB1 2 is 200-1100 pg/mL, it has been reported that between5 and 10% of patients with values between 200 and 400pg/mL may experienc e neuropsyc hiatric and hematolog icabnorma lities due to occult B12 deficienc y; less than 1%of patients with values above 400 pg/mL will have symptoms. FINAL [place] [email or web address], [address] [place] [address] Seamus Juan MD 10/19 TSH w/ refle x to free T4 TSH, mIU/L mIU/L 3.74 Blanca l Reference Range >or = 20 Years 0.40-4.50 Ranges First trimester 0.26-2.66 Second trimester 0.55-2.73 Third trimester 0.43-2.91 FINAL [place] M[email or web address], [address] [place] Seamus Juan MD 10/19 Magne sium, mg/dL mg/dL 1.5 2.5 1.8 Blanca l FINAL [place] Zarate [email or web address], [address] [place] [address] Seamus Juan MD 10/19 Iron / FE mcg/dL 40.0 190.0 223 High FINAL [place] [email or web address], [address] [facility] [address] Seamus Juan MD 10/19 TIBC mcg/dL (calc) 250.0 450.0 384 Blanca l FINAL [facility], [address] [place] [address] Seamus Juan MD 10/19 Iron, % satur ation %(calc ) 16.0 45.0 58 High FINAL [facility], [address] [place] [address] Seamus Juan MD 10/19 Cedric tin ng/mL 16.0 154.0 91 Blan[place] l FINAL [facility], [address] [facility] [address] Seamus Juan MD 10/19 Folat e, serum ng/mL 5.8 Blanca l Reference Range Low: <3.4 Borderlin e: 3.4-5.4 Normal: >5.4 FINAL [facility], [address] [place] Seamus Juan MD 10/19 Vitam in D, 25-hy droxy ng/mL 30.0 100.0 29 Low Vitamin D Status 25-OH Vitamin D:Deficie ncy: <20 ng/mLInsu fficiency : 20 - 29 ng/mLOpti mal: >or = 30 ng/mLFor 25-OH Vitamin D testing on patients onD2-supp lementati on and patients for whom quantitat ionof D2 and D3 fractions is required, the [facility]comu reD(TM)25 -OH VIT D, (D2,D3), LC/MS/MS is recommend ed: ordercode 30017 (patients >2yrs).Se e Note 1Note 1For additiona l informati on, please refer tohttp:// education .Paylocity/faq/F AQ199(Thi s link is being provided for informati onal/educ ational purposes only.) FINAL [facility], [address] [place] [address] Seamus Juan MD 10/19 Hgb A1c % 4.0 5.6 5.0 The ADA recommend s the following criteria: Normal < 5.7%Predi abetes 5.7% - 6.4%Diabe viviane >6.4% FINAL [facility], [address] [place] [address] [place] [address] 10/19 WBC 10x3/u L 4.[address] [facility], [address] [place] [address] [place] [address] 10/19 RBC 10x6uL 3.[address] [facility], [address] [place] [address] [place] [address] 10/19 HGB g/dL 12.[address] [facility], [address] [place] [address] [place] [address] 10/19 HCT % 36.[address] [facility], [address] [place] [address] [place] [address] 10/19 MCV fL 80.[address] [facility], [address] [place] [address] [place] [address] 10/19 MCH pg 25.[address] [facility], [address] [place] [address] [place] [address] 10/19 MCHC g/dL 29.[address] [facility], [address] [place] [address] [place] [address] 10/19 RDW % 11.[address] [facility], [address] [place] [address] [place] [address] 10/19 PLT 10x3/u L 130.0 500.0 325 FINAL [facility], [address] [place] [address] [place] [address] 10/19 MPV fL 7.4 10.4 9.8 FINAL [facility], [address] [place] [address] [place] [address] 10/19 Armando % % 51.0 75.0 53.0 FINAL [facility], [address] [place] [address] [place] [address] 10/19 LY % % 20.0 45.0 33.1 FINAL [facility], [address] [place] [address] [place] [address] 10/19 MO % % 0.0 10.0 7.0 FINAL [facility], [address] [place] [address] [place] [address] 10/19 EO % % 0.0 4.0 6.2 High FINAL [facility], [address] [place] [address] [place] [address] 10/19 BA % % 0.0 3.0 0.7 [facility]AL [facility], [address] [place] [address] [place] [address] 10/19 Armando # (ANC) 10x3/u L 1.8 7.7 4.0 FINAL [facility], [address] [place] [address] [place] [address] 10/19 LY # 10x3/u L 1.0 5.0 2.5 FINAL [facility], [address] [place] [address] [place] [address] 10/19 MO # 10x3/u L 0.0 0.8 0.5 FINAL [facility], [address] [place] [address] [place] [address] 10/19 EO # 10x3/u L 0.0 0.2 0.5 High FINAL [facility], [address] [place] [address] [place] [address] 10/19 BA # 10x3/u L 0.[address] [facility], [address] [place] [address] [place] [address] 10/19 Album in g/dL 3.[address] [facility], [address] [place] [address] [place] [address] 10/19 Bilir ubin, direc t mg/dL 0.0 0[address] [facility], [address] [place] [address] [place] [address] 10/19 Alkal ine phosp hatas e U/L 46.0 116.[address] [facility], [address] [place] [address] [place] [address] 10/19 Total prote in g/dL 6.[address] [facility], [address] [place] [address] [place] [address] 10/19 Globu yousif g/dL 1.[address] [facility], [address] [place] [address] [place] [address] 10/19 A/G ratio Ratio 0.[address] [facility], [address] [place] [address] [place] [address] 10/19 ALT/S GPT 12.0 78.0 28.0% FINAL [facility], [address] [place] [address] [place] [address] 10/19 AST/S GOT U/L 15.[address] [facility], [address] [place] [address] 10/19 Bilir ubin, total mg/dL 0.[address] [facility], [address] [place] [address] 10/19 Sodiu m mmol/L 135.[address] [facility], [address] [place] [address] 10/19 Potas sium mmol/L 3.[address] [facility], [address] [place] [address] 10/19 Chlor annie mmol/L 98.[address] [facility], [address] [place] [address] 10/19 CO2 mmol/L 21.[address] [facility], [address] [place] [address] [place] [address] 10/19 Gluco se, serum mg/dL 74.0 106.0 70 Low The ADA recommend s the following criteria for fasting glucose:N ormal < 100 mg/dlPred iabetes 100 - 125 mg/dlDiab etes >125 mg/dl FINAL [facility], [address] [place] [address] 10/19 BUN mg/dl 7.[address] 18[address] [facility], [address] [place] [address] [place] [address] 10/19 Creat inine mg/dl 0.[address] [facility], [address] [place] [address] [place] [address] 10/19 BUN/C reati nine ratio 0.0 20.0 16.7% FINAL [facility], [address] [place] [address] [place] [address] 10/19 GFR estim ate mL/min /1.73m 2 60.0 999.0 124 The eGFR is based on the CKD-EPI [address] [facility], [address] [place] [address] 10/19 Calci um mg/dl 8.[address] [facility], [address] [place] [address] 10/19 Anion gap, mmol/ L mmol/L 7.[address] [facility], [address] [place] [address] Medications Date Name Route Dose Frequency Instructions Start Date End Date Status Fill Status Indication 10/17 Miscell aneous Drug 1 Tri sprintec qd active 10/17 Melaton in Oral 20-30mg qd active choleca lcifero l 0.025 MG Oral Capsule orally 25.0 mcg daily 2023 active Vitamin D deficiency (disorder) vitamin B12 0.1 MG Oral Tablet orally 1.0 tablet daily 2023 active Vitamin B12 deficiency Problems Diagnosis Status Date of Diagnosis Resolution Date Insomnia Active Allergic rhinitis (disorder) Active Tinnitus (finding) Active Cervical cancer screening done Active Vitamin D deficiency (disorder) Active Anxiety Active Vitamin B12 deficiency Active Adult health examination (procedure) Active Vital Signs Date Type Value 10/17/2023 Body Temperature 98.20 10/17/2023 Heart Beat 101.00 10/17/2023 Respiratory Rate 20.00 10/17/2023 Oxygen Saturation 98.00 10/17/2023 BSA 1.91 10/17/2023 Pain Scale 1.00 10/17/2023 Weight 172.20 10/17/2023 Height 66.00 10/17/2023 BMI 27.79 10/17/2023 Intravascular Systolic 149 10/17/2023 Intravascular Diastolic 92
== END 2025-07-25 09:10 | disposition home or self-care (01) ==
LOC: HO.HMCFMS 08:34
PROVIDERS: PCP Student in an Organized Health Care Education/Training Program; Visit Provider Student in an Organized Health Care Education/Training Program
DX: F41.9 Anxiety disorder, unspecified (principal); F43.10 Post-traumatic stress disorder, unspecified; J30.9 Allergic rhinitis, unspecified; F10.91 Alcohol use, unspecified, in remission; M62.89 Other specified disorders of muscle; J30.2 Other seasonal allergic rhinitis

== ENCOUNTER 2025-08-09 09:11 | Outpatient (REF) | payer OTHER, SELFPAY ==
--- OUTSIDE RECORDS SUMMARY | 2025-06-26 09:33 | XMS_ITS | Encounter Summary ---
Author Organization [facility] Address [address] [place] [address] Phone Care Team Providers Care Still Operator Gin Name Role Phone Allie Porter MD Primary Care Provid er Encounter Details Date Type Department Care Team (Late st Contact Info) Description 06/26/2025 9:33 AM EST Hospital Encounter [facility] [address] [place] [address] Haley Dyer CNP [address] [place] [address] Social History Tobacco Use Types Packs/Day Years Used Date Smoking Tobacco: Never Assessed Education Answer Date Recorded Are you interested in more education? Not on trish e 06/26/2025 Are you concerned about learning? Not on file 06/26/2025 No 06/26/2025 No 06/26/2025 Digital Access Answer Date Recorded No 06/26/2025 No 06/26/2025 Reliable internet access at home? Not on file 06/26/2025 Device with a working camera? Not on file Comments No Sex and Gender Information Value Date Recorded Sex Assigned at Not on file Legal Sex Female 9:07 AM EST Gender Identity Not on file Sexual Orientation Not on file documented as of this encounter Plan of Treatment Not on file documented as of this encounter Procedures Procedure Name Priority Date/Time Associated Diagnosis Comments XR KNEE 4 OR MORE VIEWS (RIGHT) Urgent/patient waiting 06/26/2025 9:38 AM EST Acute pain of right knee documented in this encounter Results * XR KNEE 4 OR MORE VIEWS (RIGHT) (06/26/2025 9:38 AM EST) Anatomical Region Laterality Modality Knee Right Computed Radiogr aphy 06/26/2025 9:45 AM EST Impressions 06/26/2025 9:45 AM EST No fracture or dislocation. Trace effusion. Narrative 06/26/2025 9:45 AM EST XR KNEE 4 OR MORE VIEWS (RIGHT) Referring clinician's provided indication for this examination in [facility]: Pain; Noted subpatellar swelling, pain?restarted running COMPARISON: None FINDINGS: Right Knee: No fracture. Normal alignment. Normal joint spaces. Trace effusion. Procedure Note Rasheed Metzger MD, MPH - 06/26/2025 XR KNEE 4 OR MORE VIEWS (RIGHT) Referring clinician's provided indication for this examination in [facility]:Pain; Noted subpatellar swelling, pain?restarted running COMPARISON: None FINDINGS: Right Knee: No fracture. Normal alignment. Normal joint spaces. Traceeffusion. IMPRESSION: No fracture or dislocation. Trace effusion. Haley Dyer SHEET METAL SHOP HELPER IMG XR LOWER EXTREMITY Nirali l Result documented in this encounter Visit Diagnoses Not on filedocumented in this encounter Care Teams Still Operator Gin Relationship Specialty Start Date End Date Allie Porter MD [address] [place] [address] PCP - General 06/26/25 documented as of this encounter Additional Source Comments The information contained in this document represents components of the legal health record. It is not the complete legal health record.[facility]
--- OUTSIDE RECORDS SUMMARY | 2025-08-09 10:50 | XMS_ITS | Clinical Summary ---
Author Organization [facility] Address [address] [place] [phone] Phone Care Team Providers Care Director Radio News Name Role Phone Allie Porter MD Primary Care Provid er Allergies No known active allergies Medications folic acid (FOLVITE) 1 MG tablet Take 1 mg by mouth daily. Active therapeutic multivitamin tablet Take 1 tablet by mouth daily. Active Active Problems No known active problems Encounters Date Type Department Care Team Description 06/26/2025 9:33 AM EST Hospital Encounter [facility] [address] [place] [address] Haley Dyer CNP 06/26/2025 9:10 AM EST Office Visit [facility] at [address] [address] Haley Dyer CNP Acute pain of right [...] fracture or dislocation. Trace effusion. Haley Dyer FOUNDRY WORKER GENERAL IMG XR LOWER EXTREMITY Nirali l Result from Last 3 Months Insurance [facility] Care Teams Director Radio News Relationship Specialty Start Date End Date Allie Porter MD [address] [place] [address] PCP - General 06/26/25 Additional Source Comments The information contained in this document represents components of the legal health record. It is not the complete legal health record.[facility]
[2025-08-09 16:19] LABS: Free T4 (Free Thyroxine) 0.82 ng/dL (0.71-1.85); Thyroid Stimulating Hormone 26.55 uIU/mL (0.32-4.0)
== END 2025-08-09 09:12 | disposition home or self-care (01) ==
LOC: HO.HKASLDS 09:11
PROVIDERS: PCP Student in an Organized Health Care Education/Training Program; Visit Provider Student in an Organized Health Care Education/Training Program
DX: Z13.9 Encounter for screening, unspecified (principal); Z28.89 Immunization not carried out for other reason; E80.6 Other disorders of bilirubin metabolism; E03.9 Hypothyroidism, unspecified
CPT/HCPCS: 36415; 84439; 84443; 86376; 90471; 96127; 99212

== ENCOUNTER 2025-08-09 09:11 | Outpatient (AMB) | payer OTHER, SELFPAY ==
--- OUTSIDE RECORDS SUMMARY | 2024-08-29 11:15 | XMS_ITS ---
Author Organization [facility] Billing Info Address [address] [place] [address] Phone [phone] Care Team Providers Care Hog Room Supervisor Name Role Phone DAYAMI JEROME DON Unavailable [phone] Scott [facility] Unavailable Unavailable REASON FOR VISIT growth, BPP Social History Sex Observation Social History Observation Description Sex Observation Female Status Status Date(s) Date Recorded:02/04/2024 CJ Date:09/19/2024 Discharge Date:10/15/2024 Encounters Date Time Type Facility Location Provider Diagnosis 11:15 AM Office Visit [id number] [facility]NAL MED [address] [facility] [address] [place] [address] ELIJAH JEROME Echogenic bowel of fetus on ultrasound O28.3 ; Elevated BP without diagnosis of hypertension R03.0 and History of polyhydramnios Z87.59 Assessments Encounter Date Diagnosis (ICD Code) Assessment Notes Treat ment Notes Section Notes 08/29/2024 Echogenic bowel of fetus on ultrasound (ICD-10 - O28.3) 08/29/2024 Elevated BP without diagnosis of hypertension (ICD-10 - R03.0) 08/29/2024 History of polyhydramnios (ICD-10 - Z87.59) Plan Of Treatment No Information Medical (General) History Medical History History ICD Code Depression Bladder Infections Surgical History Surgery Date(Month/Year) tonsillectomy 2004 Progress Notes * Yanelis VERADOB: 7 (30 yo F)Acc No.[id number]:08/29/2024 PROGRESS NOTE Patient: Yanelis GERMAN External Provider: Jose JEROME DO :1995 A ge:29 Y S ex:Female Date:08/29/2024 C MARCK#:[id number] Address:[address] [place], [place] [id number] Subjective: * Chief Complaints: * 1 . growth, BPP. * Medical History: Objective: * Vitals: Assessment: * Assessment: 1. E chogenic bowel of fetus on ultrasound - O28.3 (Primary) 2 . E levated BP without diagnosis of hypertension - R03.0 3 . H istory of polyhydramnios - Z87.59 Plan: * Treatment: * * This progress note has not b een verified nor is it considered complete until locked and signed by the provider. Sign off status: Pending * Provider: Jose JEROME DO Date: 0 08/29/2024 Generated for Meir desouza/Khanh/Januarysmitting on: 10/10/2024 09:41 AM EST
--- OUTSIDE RECORDS SUMMARY | 2024-08-29 12:00 | XMS_ITS ---
Author Organization [facility] Billing Info Address [address] [place] [address] Phone [phone] Care Team Providers Care Supervisor [employer] Name Role Phone DAYAMI JEROME DON Unavailable [phone] Scott Rochaifercarmelo Unavailable Unavailable REASON FOR VISIT mfm follow up Social History Sex Observation Social History Observation Description Sex Observation Female Status Status Date(s) Date Recorded:02/04/2024 CJ Date:09/19/2024 Discharge Date:10/15/2024 Encounters Date Time Type Facility Location Provider Diagnosis 12:00 PM Office Visit [id number] [facility] MATERNAL MED [address] [facility] [address] [place] [address] ELIJAH JEROME Echogenic bowel of fetus on [...] (ICD-10 - Z87.59) 08/29/2024 37 weeks gestation o f (ICD-10 - Z3A.37) Plan Of Treatment No Information Medical (General) History Medical History History ICD Code Depression Bladder Infections Surgical History Surgery Date(Month/Year) tonsillectomy 2004 Progress Notes * Yanelis VERADOB: 7 (30 yo F)Acc No.[id number]:08/29/2024 PROGRESS NOTE Patient: Yanelis GERMAN External Provider: Jose JEROME DO :1995 A ge:29 Y S ex:Female Date:08/29/2024 C #:[id number] Address:[address] [place], [place] [phone] Subjective: * Chief Complaints: * 1 . [facility] follow up. * Medical History: * Care Transition Manager History: L ast pap d ate 0 [...] P regnancy # 1: 2 014, Miscarriage, [place]. P regnancy # 2: C urrent. Objective: * Vitals: Assessment: * Assessment: 1. E chogenic bowel of fetus on ultrasound - O28.3 (Primary) 2 . E levated BP without diagnosis of hypertension - R03.0 3 . H istory of polyhydramnios - Z87.59 4 . 3 7 weeks gestation of - Z3A.37 Plan: * Treatment: * Procedure Codes: 7 6819 72732, 56082 04817 * Care Plan Details* * This progress note has not b een verified nor is it considered complete until locked and signed by the provider. Sign off status: Pending * Provider: Jose JEROME DO Date: 0 08/29/2024 Generated for Meir desouza/Khanh/Savage on: 10/10/2024 09:41 AM EST
[2025-08-09 09:13] VITALS: BP 99/59; PULSE 77; TEMP 36.9; O2SAT 97; BMI 31.1
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
--- OUTSIDE RECORDS SUMMARY | 2025-08-09 09:42 | XMS_ITS | CCD ---
Author Name Interface, Q1Gqujetn lity Address [address] [place] [address] [facility], [facility] Address [address] [place] [address] Care Team Providers Care Lamination Operator Name Role Phone Chadwick Márquez MD Unavailable Allergies and Adverse Reactions Medication/Group Name Reaction Severity Date No known allergies Care Plan Date Type Value 10/19/2024 APPOINTMENT Annual Exam/Phys ical 30 10/12/2024 APPOINTMENT Lab 10/12/2024 LAB_ORDER CMP 10/12/2024 LAB_ORDER Lipid panel 10/12/2024 LAB_ORDER Vitamin D 10/12/2024 LAB_ORDER TSH w/ reflex to free T4 10/12/2024 LAB_ORDER Hgb A1c 10/12/2024 LAB_ORDER CBC w/o diff Reason for Visit Annual Exam/Physical 30 Medications Date Name Route Dose Frequency Instructions Start Date End Date Status Fill Status Indication 10/17 Miscellane ous Drug 1 Tri sprintec qd active 10/17 Melatonin Oral 20-30mg qd active Problems Diagnosis Status Date of Diagnosis Resolution Date Insomnia Active Allergic rhinitis (disorder) Active Tinnitus (finding) Active Cervical cancer screening done Active Vitamin D deficiency (disorder) Active Anxiety Active Vitamin B12 deficiency Active Adult health examination (procedure) Active Procedures Date Category Name Instructions Status 10/17/2024 Physician Order RTC MD Ordered Social History Date Name Value 09/08/2023 Sex Female
--- OUTSIDE RECORDS SUMMARY | 2025-08-09 09:42 | XMS_ITS ---
Author Name Interface, [id number] Address [address] [place] [address] [facility] ecialistsHUMA Address [address] [place] [address] Allergies and Adverse Reactions Medication/Group Name Reaction [...] l mg/dL 178 Blanca l FINAL [facility] [employer] [email or web address], [address] [place] [address] Seamus Juan MD 10/19 HDL poppy stero l mg/dL 80 Blanca l FINAL [facility] M[facility]quez [email or web address], [address] [place] [address] Seamus Juan MD 10/19 Trigl yceri papo mg/dL 226 High If a non-fasti ng specimen was collected , considerr epeat triglycer annie testing on a fasting specimeni f clinicall y indicated .Vinod et al. J. of Clin. Lipidol. 2015;9:12 9-169. FINAL [facility], [address] [place] [address] Seamus Juan MD 10/19 LDL poppy [...] vinson SS et al. PETE. 2013;310( 19): 5607-4886 (http://e ducation. Easyclass.comag nostics.c om/faq/FA L888) FINAL [facility] [employer] [facility], [address] [place] [address] Seamus Juan MD 10/19 Poppy stero l/HDL ratio (calc) 2.2 Blanca l FINAL [facility] [employer] [facility], [address] [place] [address] Seamus Juan MD 10/19 Non-H DL poppy stero l mg/dL( calc) 98 Blanca l For patients with diabetes plus 1 major ASCVD riskfacto r, treating to a non-HDL-C goal of <100 mg/dL(LDL -C of <70 mg/dL) is considere d a therapeut icoption. FINAL [facility] M[facility], [address] [place] [address] Seamus Juan MD 10/19 Vitam in [...] pg/mL will have symptoms. FINAL [facility] Taeb[employer] [email or web address], [address] [place] [address] Seamus Juan MD 10/19 TSH w/ refle x to free T4 TSH, mIU/L mIU/L 3.74 Blanca l Reference Range >or = 20 Years 0.40-4.50 Ranges First trimester 0.26-2.66 Second trimester 0.55-2.73 Third trimester 0.43-2.91 FINAL [facility] M[facility]quez [email or web address], [address] [place] Seamus Juan MD 10/19 Magne sium, mg/dL mg/dL 1.5 2.5 1.8 Blanca l FINAL [facility] Z[employer] [email or web address], [address] [place] [address] Seamus Juan MD 10/19 Iron / FE mcg/dL 40.0 190.0 223 High FINAL [facility] [employer] [email or web address], [address] [facility] [address] Seamus Juan MD 10/19 TIBC mcg/dL (calc) 250.0 450.0 384 Blanca l FINAL [facility], [address] [place] [address] Seamus Juan MD 10/19 Iron, % satur ation %(calc ) 16.0 45.0 58 High [facility]AL [facility], [address] [place] [address] Seamus Juan MD 10/19 Cedric tin ng/mL 16.0 154.0 91 Blanca l FINAL [facility], [address] [facility] [address] Seamus Juan MD 10/19 Folat e, serum ng/mL 5.8 Blanca l Reference Range Low: <3.4 Borderlin e: 3.4-5.4 Normal: >5.4 FINAL [facility], [address] [place] Seamus Juan MD 10/19 Vitam in D, 25-hy droxy ng/mL 30.0 100.0 29 Low Vitamin D Status 25-OH Vitamin D:Deficie ncy: <20 ng/mLInsu fficiency : 20 - 29 ng/mLOpti mal: >or = 30 ng/mLFor 25-OH Vitamin D testing on patients onD2-supp lementati on and patients for whom quantitat ionof D2 and D3 fractions is required, the Questzlienu reD(TM)25 -OH VIT D, (D2,D3), LC/MS/MS is recommend ed: ordercode 25506 (patients >2yrs).Se e Note 1Note 1For additiona l informati on, please refer tohttp:// education .Holganix/faq/F AQ199(Thi s link is being provided for informati onal/educ ational purposes only.) FINAL [facility], [address] [place] [address] Seamus Juan MD 10/19 Hgb A1c % 4.0 5.6 5.0 The ADA recommend s the following criteria: Normal < 5.7%Predi abetes 5.7% - 6.4%Diabe viviane >6.4% FINAL [facility], [address] [place] [address] [place] [address] 10/19 WBC 10x3/u L 4.0 11.0 7.6 FINAL [facility], [address] [place] [address] [place] [address] 10/19 RBC 10x6uL 3.7 5.4 4.02 FINAL [facility], [address] [place] [address] [place] [address] 10/19 HGB g/dL 12.0 16.0 13.1 FINAL [facility], [address] [place] [address] [place] [address] 10/19 HCT % 36.0 48.0 39.9 FINAL [facility], [address] [place] [address] [place] [address] 10/19 MCV fL 80.0 100.0 99.3 FINAL [facility], [address] [place] [address] [place] [address] 10/19 MCH pg 25.0 33.0 32.6 FINAL [facility], [address] [place] [address] [place] [address] 10/19 MCHC g/dL 29.0 36.0 32.8 FINAL [facility], [address] [place] [address] [place] [address] 10/19 RDW % 11.0 15.0 13.0 FINAL [facility], [address] [place] [address] [place] [address] 10/19 PLT 10x3/u L 130.0 500.0 325 FINAL [facility], [address] [place] [address] [place] [address] 10/19 MPV fL 7.4 10.4 9.8 FINAL [facility], [address] [place] [address] [place] [address] 10/19 Armando % % 51.0 75.0 53.0 FINAL [facility], [address] [place] [address] [place] [address] 10/19 LY % % 20.0 45.0 33.1 FINAL [facility], [address] [place] [address] [place] [address] 10/19 MO % % 0.0 10.0 7.0 FINAL [facility], [address] [place] [address] [place] [address] 10/19 EO % % 0.0 4.0 6.2 High FINAL [facility], [address] [place] [address] [place] [address] 10/19 BA % % 0.0 3.0 0.7 FINAL [facility], [address] [place] [address] [place] [address] 10/19 Armando # (ANC) 10x3/u L 1.8 7.7 4.0 FINAL [facility], [address] [place] [address] [place] [address] 10/19 LY # 10x3/u L 1.0 5.0 2.5 FINAL [facility], [address] [place] [address] [place] [address] 10/19 MO # 10x3/u L 0.0 0.8 0.5 FINAL [facility], [address] [place] [address] [place] [address] 10/19 EO # 10x3/u L 0.0 0.2 0.5 High FINAL [facility], [address] [place] [address] [place] [address] 10/19 BA # 10x3/u L 0.0 0.2 0.1 FINAL [facility], [address] [place] [address] [place] [address] 10/19 Album in g/dL 3.4 5.0 4.0 FINAL [facility], [address] [place] [address] [place] [address] 10/19 Bilir ubin, direc t mg/dL 0.0 0.2 0.22 High FINAL [facility], [address] [place] [address] [place] [address] 10/19 Alkal ine phosp hatas e U/L 46.0 116.0 43 Low FINAL [facility], [address] [place] [address] [place] [address] 10/19 Total prote in g/dL 6.4 8.2 7.3 FINAL [facility], [address] [place] [address] [place] [address] 10/19 Globu yousif g/dL 1.5 4.5 3.3 FINAL [facility], [address] [place] [address] [place] [address] 10/19 A/G ratio Ratio 0.8 2.7 1.2 FINAL [facility], [address] [place] [address] [place] [address] 10/19 ALT/S GPT 12.0 78.0 28.0% FINAL [facility], [address] [place] [address] [place] [address] 10/19 AST/S GOT U/L 15.0 37.0 26 FINAL [facility], [address] [place] [address] 10/19 Bilir ubin, total mg/dL 0.2 1.0 0.90 FINAL [facility], [address] [place] [address] 10/19 Sodiu m mmol/L 135.0 146.0 139 FINAL [facility], [address] [place] [address] 10/19 Potas sium mmol/L 3.5 5.3 3.9 FINAL [facility], [address] [place] [address] 10/19 Chlor annei mmol/L 98.0 110.0 102 FINAL [facility], [address] [place] [address] 10/19 CO2 mmol/L 21.0 32.0 25.7 FINAL [facility], [address] [place] [address] [place] [address] 10/19 Gluco se, serum mg/dL 74.0 106.0 70 Low The ADA recommend s the following criteria for fasting glucose:N ormal < 100 mg/dlPred iabetes 100 - 125 mg/dlDiab etes >125 mg/dl FINAL [facility], [address] [place] [address] 10/19 BUN mg/dl 7.0 18.0 11 FINAL [facility], [address] [place] [address] [place] [address] 10/19 Creat inine mg/dl 0.55 1.3 0.66 FINAL [facility], [address] [place] [address] [place] [address] 10/19 BUN/C reati nine ratio 0.0 20.0 16.7% FINAL [facility], [address] [place] [address] [place] [address] 10/19 GFR estim ate mL/min /1.73m 2 60.0 999.0 124 The eGFR is based on the CKD-EPI 2020 equation. FINAL [facility], [address] [place] [address] 10/19 Calci um mg/dl 8.5 10.1 9.4 FINAL [facility], [address] [place] [address] 10/19 Anion gap, mmol/ L mmol/L 7.0 22.0 15.2 FINAL [facility], [address] [place] [address] Medications Date Name Route Dose Frequency Instructions [...]
--- OUTSIDE RECORDS SUMMARY | 2025-08-09 09:42 | XMS_ITS | Patient Health Record ---
Author Organization [facility] Billing Info Address [address] [place] [address] Phone [phone] Care Team Providers Care Associate School Psychologist Name Role Phone ELIJAH JEROME DO Unavailable [phone] Scott Rochaifery Unavailable Unavailable Allergies No Known Allergies Results Component Value Reference Range Notes US- BIOPHYSICAL PROFIL E, W/O NON-STRESS(ScImage-PREFBO) (94007) IH Order date: 08/14/2024 Reviewed date:08/14/2024 12:31:28 PM Interpretation:Report reviewed by Specialist Performing Lab: Notes/Report: Reason For Referral No Information Medications Medication SIG (Take, Route, Frequency, Duration) Notes Start Date End Date Diagnosis (ICD Code) Status Magnesium Active Liver Beef Liver Active DHA 200 MG Capsule 1 capsule with a meal Orally Once a day; Duration: 30 days 01/18/2024 Active Melatonin 3 MG Tablet 1 tablet at bedtime as needed Orally Once a day 30mg Active Ferrous Sulfate Active Doxylamine-Pyrid oxine 10-10 MG Tablet Delayed Release as directed Orally take daily q.h.s. may increase to b.i.d. if tolerate to the sleepiness side effects; Duration: 30 days 02/06/2024 Encounter for care in first trimester of first (ICD_10 - Z34.01) Active Aspirin Adult Low Dose 81 MG Tablet Delayed Release 1 tablet Orally Once a day Active Social History Tobacco Use: Social History Observation Description Date Details (start date - stop date) Former Smoker NA - NA Sex Observation Social History Observation Description Sex Observation Female Status Status Date(s) Date Recorded:02/04/2024 CJ Date:09/19/2024 Discharge Date:10/15/2024 Social History Social History Social Info Question Answer Notes Tobacco Status: Patient is a former smoker Quit in: 2018 Illicit Drug Use: Patient/Family reports: Prior illicit drug use Marijuana, Aleja, Acid, Cocaine, Mushroom - 3 years Do you use marijuana? No Do you use prescription drugs that are not presc ribed for you? No Alcohol Use: Patient uses alcohol once per week o utside of Problems Problem Type SNOMED Code ICD Code Dates Problem Status W/U Status Risk Notes Problem Elevated blood pressure reading without diagnosis of hypertension (683162330) Elevated BP without diagnosis of hypertension (R03.0) Added On:06/01 Active confirmed Problem Abnormal findings on screening of mother (818498019) Echogenic bowel of fetus on ultrasound (O28.3) Added On:05/03 Active confirmed Problem History of polyhydramnios (Z87.59) Added On:07/25 Active confirmed Vital Signs Vital Sign Value Notes Appt Date Heart Rate 88 /min 08/14/2024 Oximetry 99 08/14/2024 Blood pressure diastolic 66 mm Hg Height 66 in 08/14/2024 Blood pressure systolic 108 mm Hg 07/23 Weight 205 lbs 08/14/2024 BMI 33.08 kg/m2 08/14/2024 Encounters Date Time Type Facility Location Provider Diagnosis 09:52 AM Telephone Encounter [id number] [facility] [address] [facility] 2ND FLOOR [place], [place] [id number] ELIJAH JEROME 4 08:30 AM OFFICE/OUTPAT IENT VISIT EST ([id number]) [id number] [facility] [address] [place] [address] ELIJAH JEROME Echogenic bowel of fetus on ultrasound O28.3 ; Elevated BP without diagnosis of hypertension R03.0 ; History of polyhydramnios Z87.59 and 34 weeks gestation of Z3A.34 08:30 AM Office Visit [id number] [facility] [address] [place] [address] ELIJAH JEROME Echogenic bowel of fetus on ultrasound O28.3 ; Elevated BP without diagnosis of hypertension R03.0 and History of polyhydramnios Z87.59 Assessments Encounter Date Diagnosis (ICD Code) Assessment Notes Treat ment Notes Section Notes 08/14/2024 Echogenic bowel of fetus on ultrasound (ICD-10 - O28.3) 08/14/2024 Elevated BP without diagnosis of hypertension (ICD-10 - R03.0) 08/14/2024 Echogenic bowel of fetus on ultrasound (ICD-10 - O28.3) 08/14/2024 Elevated BP without diagnosis of hypertension (ICD-10 - R03.0) 08/14/2024 History of polyhydramnios (ICD-10 - Z87.59) 08/14/2024 History of polyhydramnios (ICD-10 - Z87.59) 08/14/2024 34 weeks gestation o f (ICD-10 - Z3A.34) Weeks 34 to 36 of Your : Care Instructions material was published 08/14/2024 Other Plan Of Treatment No Information Medical (General) History Medical History History ICD Code Depression Bladder Infections Surgical History Surgery Date(Month/Year) tonsillectomy 2004
== END 2025-08-09 09:40 | disposition home or self-care (01) ==
LOC: HO.HMCFMS 09:12
PROVIDERS: PCP Student in an Organized Health Care Education/Training Program; Visit Provider Student in an Organized Health Care Education/Training Program
DX: E03.9 Hypothyroidism, unspecified (principal); E80.6 Other disorders of bilirubin metabolism; Z23 Encounter for immunization